=== PATIENT | male | born 1960 | race Caucasian/White ===

== ENCOUNTER → 2016-10-30 | Outpatient (CLI) | payer BC ==
--- NOTE | 2016-10-30 11:53 | DX ---
PA and Lateral Chest Indication: Cough and fever. Comparison: Two-view chest dated July 30, 2009 Findings: The lungs are well aerated and clear. No pneumothorax, consolidation, or effusion. Heart si ze normal. A surgical clip in the left upper quadrant is unchanged since 2008. Impression: Clear lungs. No pneumonia or explanation for cough. Comment: Results were discussed with .
== END ==
LOC: BMCIMAGING 11:28
PROVIDERS: ATTEND Internal Medicine
DX: R05 Cough (principal); R50.9 Fever, unspecified

== ENCOUNTER → 2019-01-14 | Outpatient (CLI) | payer BC | LOC: EMCIMAGING 07:12 | PROVIDERS: ATTEND Internal Medicine | DX: R16.0 Hepatomegaly, not elsewhere classified (principal); K76.0 Fatty (change of) liver, not elsewhere classified; N20.0 Calculus of kidney | CPT/HCPCS: 76700-PN ==

== ENCOUNTER → 2019-01-25 | Outpatient (CLI) | payer BC | LOC: EMCIMAGING 12:35 | PROVIDERS: ATTEND Internal Medicine | DX: K76.0 Fatty (change of) liver, not elsewhere classified (principal); N28.1 Cyst of kidney, acquired; K57.30 Diverticulosis of large intestine without perforation or abscess without bleeding | CPT/HCPCS: 72197-PN; 74183-PN ==

== ENCOUNTER → 2019-03-09 | Outpatient (CLI) | payer BC | LOC: EMCIMAGING 13:32 ==

== ENCOUNTER → 2019-03-18 | Outpatient (CLI) | payer BC | LOC: FIMAGING 15:14 ==